=== PATIENT | male | born 1950 | race Caucasian/White ===

== ENCOUNTER 2017-05-31 11:25 | Emergency (ER) | payer SELFPAY ==
[2017-05-31 11:54] VITALS: BP 138/76; PULSE 54; RESP 18; TEMP 98; O2SAT 100
--- NOTE | 2017-05-31 12:22 | C.PDOC ---
Time Seen by Provider: 05/31/17 12:05 Chief Complaint (Nursing): Lower Extremity Problem/Injury History Per: Patient, Family Onset/Duration Of Symptoms: Days (months) Current Symptoms Are (Timing): Still Present Location Of Injury: Right: Foot, Left: Foot Quality Of Symptoms: Other (dry, scaly) Severity: Moderate Additional History Per: Prior Records Past Medical History Reviewed: Historical Data, Nursing Documentation, Vital Signs Vital Signs: Last Vital Signs Temp 98 F 05/31/17 11:46 Pulse 54 L 05/31/17 11:46 Resp 18 05/31/17 11:46 BP 138/76 05/31/17 11:46 Pulse Ox 100 05/31/17 11:46 - Medical History PMH: Diabetes, HTN Family History: States: Unknown Family Hx - Social History Hx Alcohol Use: Yes Hx Substance Use: No - Immunization History Hx Tetanus Toxoid Vaccination: Yes Hx Influenza Vaccination: Yes Hx Pneumococcal Vaccination: Yes Review Of Systems Except As Marked, All Systems Reviewed And Found Negative. Constitutional: Negative for: Fever, Weakness Cardiovascular: Negative for: Chest Pain Respiratory: Negative for: Shortness of Breath Gastrointestinal: Negative for: Vomiting, Abdominal Pain Musculoskeletal: Negative for: Leg Pain Skin: Positive for: Rash Neurological: Negative for: Weakness, Numbness Physical Exam - Physical Exam Appears: Non-toxic, No Acute Distress Skin: Normal Color, Warm, Dry Head: Atraumatic, Normacephalic Eye(s): bilateral: PERRL, EOMI Neck: Normal ROM, Supple Extremity: Normal ROM, No Calf Tenderness, No Deformity, Other (dry, scaly skin mostly on plantar aspect of b/l feet. Contrary to triage note, no ingrown toe nails.) Pulses: Left Dorsalis Pedis: Normal, Right Dorsalis Pedis: Normal Neurological/Psych: Oriented x3, Normal Motor, Normal Sensation ED Course And Treatment O2 Sat by Pulse Oximetry: 100 Pulse Ox Interpretation: Normal Disposition Counseled Patient/Family Regarding: Diagnosis, Need For Followup, Rx Given - Disposition Referrals: Adan Blankenship DPM [[facility]] - Disposition: HOME/ ROUTINE Disposition Time: 12:26 Condition: STABLE Additional Instructions: Follow up with your Supervisor Seaming (foot doctor) for further evaluation and treatment. Return to the ER if you develop redness, swelling, drainage, open wounds, worsening of symptoms or if you have any other concerns. Prescriptions: Clotrimazole 1% Cream [Lotrimin 1%] 1 applic TOP BID #1 tube Instructions: Tinea Pedis (ED) Print Language: GREEK - Clinical Impression Clinical Impression: Cracked skin on feet
== END 2017-05-31 12:38 | disposition home or self-care (01) ==
LOC: C.ER 11:25
DX: L98.8 Other specified disorders of the skin and subcutaneous tissue (principal)

== ENCOUNTER 2018-12-19 09:36 | Outpatient (CLI) | payer SELFPAY | END 2018-12-19 09:37 | disposition home or self-care (01) | LOC: C.LAB 09:36 | DX: E11.9 Type 2 diabetes mellitus without complications (principal); I10 Essential (primary) hypertension; E58 Dietary calcium deficiency; N40.1 Benign prostatic hyperplasia with lower urinary tract symptoms ==